=== PATIENT | male | born 1995 | race Caucasian/White ===

== ENCOUNTER 2020-09-07 20:00 | Emergency (ER) | payer OTHER ==
[~2020-09-07] VITALS: Ht 226.1 cm; Wt 79.4 kg
[2020-09-07 20:11] VITALS: BP 118/65
[2020-09-07] MEDS ORDERED: ALL DAY PAIN R220 MG PO (20:16)
== END 2020-09-07 21:54 | disposition home or self-care (01) ==
LOC: ER 20:00
DX: J02.0 Streptococcal pharyngitis (principal); Z79.899 Other long term (current) drug therapy